=== PATIENT | male | born 1990 | race Caucasian/White ===

== ENCOUNTER 2019-12-07 09:45 | Observation (INO) | payer OTHER ==
[~2019-12-07] VITALS: Ht 172.7 cm; Wt 64.8 kg
[2019-12-07 10:42] LABS: ALBUMIN 4.4 gm/dL (3.5-5.0); BILIRUBIN,TOTAL 0.5 mg/dL (0.0-1.0); CALCIUM 8.5 mg/dL (8.4-10.2); CREATININE, serum 0.8 (0.66-1.25); POTASSIUM 4.1 mmol/L (3.4-5.0)
[2019-12-07 10:43] LABS: BASO # 0.1 (0.0-0.2); BASO % 0.3 % (0.0-2.0); EOS # 0.1 (0.0-0.7); EOS % 0.8 % (0-4.0); GRAN # 14.5 (1.4-6.5); GRAN % 81.8 % (42.2-75.2); HEMATOCRIT 44.5 % (42.0-52.0); LYMPH # 1.8 (1.2-3.4); LYMPH % 10.3 % (20.0-51.0); MEAN CELL VOLUME 88 fl (80.0-100.0); MEAN CORPUSCULAR HEMOGLOBIN 32 pg (27.0-31.0); MEAN CORPUSCULAR HGB CONC 36 g/dl (33.0-37.0); MEAN PLATELET VOLUME 10.1 fl (7.4-10.4); MONO # 1.1 (0.1-0.6); MONO % 6.3 % (1.7-9.3); PLATELET COUNT 272 K/mm3 (130-400); RED BLOOD COUNT 5.08 M/mm3 (4.20-5.60); REDCELL DISTRIBUTION WIDTH-CV 11.6 % (11.5-14.5)
[2019-12-07 10:45] LABS: PROTHROMBIN TIME 11.2 SECONDS (9.7-12.8)
[2019-12-07 12:24] LABS: TRICYCLIC ANTIDEPRESS URINE NEGATIVE
[2019-12-07 16:29] VITALS: BP 120/67; PULSE 98; TEMP 98.7
[2019-12-07 16:31] VITALS: BP 120/67; PULSE 98; TEMP 98.7
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
[2019-12-07 18:27] LABS: HEMATOCRIT 46.5 % (42.0-52.0); HEMOGLOBIN 16.2 g/dl (13.5-18.0)
[2019-12-07 19:46] VITALS: BP 116/77; PULSE 94; TEMP 98.8
[2019-12-07 23:50] VITALS: BP 132/81; PULSE 77; TEMP 98.8
--- NOTE | 2019-12-08 00:48 | NUR ---
Patient has been resting with eyes closed the majority of my shift so far. Multiple abrasions noted to left side of body. Covered with gauze. Swelling and bruising noted to left orbital. Patient states he is happy that he can open his eye now. Patient complains of pain 6/10 to left shoulder and left face. States the ice helps. New ice given. Scheduled medication administered. Patient compliant with cares. Will continue to monitor.
[2019-12-08 02:34] LABS: HEMATOCRIT 47.7 % (42.0-52.0); HEMOGLOBIN 16.4 g/dl (13.5-18.0)
[2019-12-08 04:00] VITALS: BP 135/75; PULSE 70; TEMP 98.5
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
[2019-12-08 08:26] VITALS: BP 120/67; PULSE 74; TEMP 98.2
[2019-12-08 10:10] LABS: HEMATOCRIT 45.3 % (42.0-52.0)
[2019-12-08 12:31] VITALS: BP 125/77; PULSE 68; TEMP 98
[2019-12-08 16:13] VITALS: BP 132/84; PULSE 66; TEMP 98.2
--- NOTE | 2019-12-08 17:00 | NUR ---
Discharge paperwork reviewed with the patient. Patient verbalized an understanding to follow doctors orders. IV removed, tip intact. Gauze and coban covering. Patient tolerated well. No further needs expressed from the patient. Patient ambulated independently to the ER entrance. Personal belongings and discharge paperwork with patient.
== END 2019-12-08 17:00 | disposition home or self-care (01) ==
LOC: COL.ER 09:45 → JCC 11:33
PROVIDERS: Emergency Medicine; ADMIT Surgery
DX: S02.2XXA Fracture of nasal bones, initial encounter for closed fracture (principal); V29.40XA Motorcycle driver injured in collision with unspecified motor vehicles in traffic accident, initial encounter; F43.10 Post-traumatic stress disorder, unspecified; F17.210 Nicotine dependence, cigarettes, uncomplicated
CPT/HCPCS: G0378; J0690; J1885; J2270; J7030; Q9967

== ENCOUNTER 2020-06-08 14:22 | Emergency (ER) | payer OTHER ==
[~2020-06-08] VITALS: Ht 170.2 cm; Wt 62.7 kg
[2020-06-08 14:23] VITALS: TEMP 98.3
[2020-06-08] MEDS ORDERED: TYLENOL 325MG325 MG PO (16:14)
[2020-06-08] MEDS ORDERED: CEPHALEXIN500 M1 PO (16:14)
[2020-06-08 16:27] VITALS: BP 133/87; PULSE 82
== END 2020-06-08 16:23 | disposition home or self-care (01) ==
LOC: COL.ER 14:22
DX: S01.01XA Laceration without foreign body of scalp, initial encounter (principal); S50.312A Abrasion of left elbow, initial encounter; S30.811A Abrasion of abdominal wall, initial encounter; S40.211A Abrasion of right shoulder, initial encounter; R55 Syncope and collapse; V29.9XXA Motorcycle rider (driver) (passenger) injured in unspecified traffic accident, initial encounter